=== PATIENT | male | born 1975 | race Caucasian/White ===

== ENCOUNTER 2023-11-22 15:09 | Inpatient (IN) ==
[2023-11-22 16:18] LABS: ABS Basophils 0.1 10^3/uL (0.0-0.1); ABS Eosinophils 0.1 10^3/uL (0.0-0.5); ABS Lymphocytes 3.5 10^3/uL (1.0-4.8); ABS Monocytes 0.6 10^3/uL (0.0-1.1); ABS Neutrophils 7.4 10^3/uL (1.5-7.6); ABS Nucleated RBC 0.01 10^3/ul; Eosinophil % 0.9 %; Hematocrit 46.5 % (38-53); Lymphocyte % 30.4 %; Mean Corpuscular Hemoglobin 29.4 pg (27-33); Mean Corpuscular Hgb Conc 34.5 g/dL (31-36); Mean Corpuscular Volume 85.3 fL (80-97); Mean Platelet Volume 7.8 fL (7.5-11.2); Nucleated Red Blood Cells % 0.1 %/100WBC (0.0-0.8); Platelet Count 396 10^3/uL (150-450); Red Blood Count 5.45 10^6/uL (4.06-5.63); White Blood Count 11.7 10^3/uL (3.6-10.2)
[2023-11-22 16:27] LABS: INR 0.98 (0.83-1.13)
[2023-11-22] MEDS: Piperacillin/Tazobac 3.375 BAG 3.375 GM/100 ML BAG IV ONE (16:32)
[2023-11-22] MEDS: Lactated Ringers SEPSIS* BAG 2,310 ML IV ONE (16:32)
[2023-11-22 16:56] LABS: Albumin 4.7 g/dL (3.2-5.2); Albumin/Globulin Ratio 1.7 (1-3); C Reactive Protein 2.19 mg/L (<8.01); Calcium 9.9 mg/dL (8.6-10.3); Creatinine, Serum 1.13 mg/dL (0.67-1.17); Globulin 2.8 g/dL (2-4); Potassium 4.3 mmol/L (3.5-5.0); Total Bilirubin 0.3 mg/dL (0.2-1.0); Total Protein 7.5 g/dL (6.4-8.9); eGFR CKD-EPI 79.7 (>60)
[2023-11-22 17:36] LABS: Magnesium 2.9 mg/dL (1.9-2.7)
[2023-11-22 17:55] LABS: High Sensitivity Troponin 1 Hr 30 pg/mL (<20)
[2023-11-22] MEDS: Iohexol 350 (CONTRAST) 500 ML MDV IV ONE (18:06)
[2023-11-22] MEDS: Iodixanol (CONTRAST) 320 MG/ML 100 ML SDV IV ONE (18:07)
[2023-11-22] MEDS: diazePAM INJ CARPUJECT 5 MG/ML SYRINGE IV ONE (18:23)
[2023-11-22 19:06] LABS: Urine Appearance Clear; Urine Bilirubin Negative (Negative); Urine Blood 1+ (Negative); Urine Color Light-Yellow; Urine Glucose Negative (Negative); Urine Ketones Negative (Negative); Urine Nitrite Negative (Negative); Urine Protein 1+ (>=30 mg/dL) (Negative); Urine Specific Gravity 1.017 (1.002-1.030); Urine Urobilinogen Negative (Negative); Urine pH 5.5 (5.0-8.0)
[2023-11-22 19:08] LABS: High Sensitivity Troponin 3 Hr 86 pg/mL (<20)
[2023-11-22 19:11] LABS: Urine Bacteria 1+ /HPF (Absent); Urine Red Blood Cell 1+(3-5/hpf) /HPF (0-Trace); Urine Squamous Epithelial Cell Present /HPF (Absent); Urine White Blood Cell Trace(0-5/hpf) /HPF (0-Trace)
[2023-11-23 00:40] LABS: High Sensitivity Troponin 1 Hr 110 pg/mL (<20)
[2023-11-23 03:48] LABS: High Sensitivity Troponin 3 Hr 76 pg/mL (<20)
[2023-11-23 04:36] LABS: ABS Basophils 0.1 10^3/uL (0.0-0.1); ABS Lymphocytes 1.7 10^3/uL (1.0-4.8); ABS Monocytes 1.2 10^3/uL (0.0-1.1); ABS Neutrophils 11.5 10^3/uL (1.5-7.6); ABS Nucleated RBC 0.02 10^3/ul; Eosinophil % 0.1 %; Hematocrit 41.1 % (38-53); Hemoglobin 14.1 g/dL (13.2-16.3); Lymphocyte % 11.8 %; Mean Corpuscular Hemoglobin 29.3 pg (27-33); Mean Corpuscular Hgb Conc 34.4 g/dL (31-36); Mean Corpuscular Volume 85.1 fL (80-97); Mean Platelet Volume 8.4 fL (7.5-11.2); Nucleated Red Blood Cells % 0.1 %/100WBC (0.0-0.8); Platelet Count 306 10^3/uL (150-450); Red Blood Count 4.82 10^6/uL (4.06-5.63); White Blood Count 14.5 10^3/uL (3.6-10.2)
[2023-11-23 04:41] LABS: Calcium 8.8 mg/dL (8.6-10.3); Creatinine, Serum 1.43 mg/dL (0.67-1.17); Potassium 4.3 mmol/L (3.5-5.0); eGFR CKD-EPI 60.1 (>60)
[2023-11-23] MEDS: Lactated Ringers 1000 ml BAG 1,000 ML IV SCH ×2 (09:35→13:35)
[2023-11-23] MEDS: DULoxetine DR 30 mg CAP PO SCH (09:36)
[2023-11-23] MEDS ORDERED: Dextrose 50% Syringe 50 ml 25 GM/50 ML SYRINGE IV PUSH PRN (10:39)
[2023-11-23 10:50] LABS: Calcium 8.7 mg/dL (8.6-10.3); Creatinine, Serum 1.47 mg/dL (0.67-1.17); Potassium 3.9 mmol/L (3.5-5.0); eGFR CKD-EPI 58.1 (>60)
[2023-11-23] MEDS ORDERED: Lactated Ringers 1000 ml BAG 1,000 ML IV SCH (11:00)
[2023-11-23] MEDS: Lactated Ringers 1000 ml BAG 1,000 ML IV ONE ×2 (11:46→18:21)
[2023-11-23 17:47] LABS: Calcium 8.2 mg/dL (8.6-10.3); Creatinine, Serum 1.46 mg/dL (0.67-1.17); Potassium 3.8 mmol/L (3.5-5.0); eGFR CKD-EPI 58.6 (>60)
[2023-11-24 05:12] LABS: ABS Basophils 0.1 10^3/uL (0.0-0.1); ABS Eosinophils 0.1 10^3/uL (0.0-0.5); ABS Lymphocytes 2.6 10^3/uL (1.0-4.8); ABS Neutrophils 7.6 10^3/uL (1.5-7.6); Hematocrit 38.2 % (38-53); Hemoglobin 13.1 g/dL (13.2-16.3); Lymphocyte % 22.7 %; Mean Corpuscular Hemoglobin 29.4 pg (27-33); Mean Corpuscular Hgb Conc 34.2 g/dL (31-36); Mean Corpuscular Volume 85.8 fL (80-97); Mean Platelet Volume 7.5 fL (7.5-11.2); Platelet Count 273 10^3/uL (150-450); Red Blood Count 4.45 10^6/uL (4.06-5.63); White Blood Count 11.3 10^3/uL (3.6-10.2)
[2023-11-24 05:54] LABS: Calcium 8.2 mg/dL (8.6-10.3); Creatinine, Serum 1.32 mg/dL (0.67-1.17); eGFR CKD-EPI 66.1 (>60)
[2023-11-24] MEDS: Lactated Ringers 1000 ml BAG 1,000 ML IV SCH ×2 (18:34→19:22)
[2023-11-25 06:04] LABS: ABS Basophils 0.1 10^3/uL (0.0-0.1); ABS Eosinophils 0.1 10^3/uL (0.0-0.5); ABS Monocytes 0.8 10^3/uL (0.0-1.1); ABS Neutrophils 5.4 10^3/uL (1.5-7.6); Eosinophil % 1.5 %; Hematocrit 39.4 % (38-53); Hemoglobin 13.8 g/dL (13.2-16.3); Lymphocyte % 23.6 %; Mean Corpuscular Hemoglobin 29.6 pg (27-33); Mean Corpuscular Hgb Conc 35.1 g/dL (31-36); Mean Corpuscular Volume 84.4 fL (80-97); Mean Platelet Volume 7.5 fL (7.5-11.2); Platelet Count 278 10^3/uL (150-450); Red Blood Count 4.67 10^6/uL (4.06-5.63); Red Cell Distribution Width 12.7 % (12-17); White Blood Count 8.4 10^3/uL (3.6-10.2)
[2023-11-25 06:51] LABS: Calcium 8.6 mg/dL (8.6-10.3); Creatinine, Serum 1.22 mg/dL (0.67-1.17); Magnesium 1.8 mg/dL (1.9-2.7); Potassium 4.4 mmol/L (3.5-5.0); eGFR CKD-EPI 72.7 (>60)
[2023-11-25] MEDS: Lactated Ringers 1000 ml BAG 1,000 ML IV ONE (11:26)
[2023-11-25 14:05] VITALS: BP 137/83
== END 2023-11-25 15:45 | disposition home or self-care (01) | DRG 638 ==
LOC: EDHOLD 15:09 → ED 15:09 → SUATTDRO 22:36 → MEDTELE 23:21
PROVIDERS: ADMIT Internal Medicine; ATTEND Student in an Organized Health Care Education/Training Program